=== PATIENT | female | born 1985 | race Caucasian/White ===

== ENCOUNTER 2019-05-28 13:14 | Outpatient (CLI) | payer OTHER ==
[~2019-05-28 13:14] MED LIST: ALBUTEROL NEB 2.5 MG/3 ML INH ONE
== END 2019-05-28 13:15 | disposition home or self-care (01) ==
LOC: RT 13:14
PROVIDERS: ATTEND Nurse Practitioner Family
DX: R06.02 Shortness of breath (principal)
CPT/HCPCS: 94010